=== PATIENT | male | born 1960 | race Caucasian/White ===

== ENCOUNTER → 2018-01-31 | Outpatient (CLI) | payer BC ==
--- NOTE | 2018-01-31 18:36 | Diagnostic Imaging Report ---
PROCEDURE:US RETROPERITONEAL ( KIDNEY ). COMPARISON:None. INDICATIONS:Cyst Of Kidney TECHNIQUE: Escalante-scale and color sonographic images of the bilateral kidneys and bladder where obtained in transverse and longitudinal planes. FINDINGS: RIGHT KIDNEY: 10.4 x 4.5 x 5.2 cm, cortex 1.5 cm Cysts: None Solid masses: None Stones: None Hydronephrosis: None. Mild pelviectasis which resolved after voiding. Echogenicity: Normal LEFT KIDNEY: 10.5 x 6.1 x 5.1 cm, cortex 1.7 cm Cysts: 1.2 x 1.1 x 1.1 cm anechoic cyst in the interpolar region. Solid masses: None Stones: None Hydronephrosis: None. Mild pelviectasis which resolved after voiding. Echogenicity: Normal Bladder: Normal. Both jets visualized. Prostate: 3.9 x 2.9 x 3.5 cm (20.7 cc), within normal size limits. CONCLUSION: Left renal simple cyst. Otherwise, unremarkable renal ultrasound exam. Dictated by: Tip Krishnan M.D. on 01/31/2018 at 18:41 Electronically approved by: Tip Krishnan M.D. on 01/31/2018 at 18:41
== END ==
LOC: US 16:02
PROVIDERS: ATTEND Urology
DX: N28.1 Cyst of kidney, acquired (principal)
CPT/HCPCS: 76770